=== PATIENT | male | born 1995 | race Caucasian/White ===

== ENCOUNTER 2019-06-02 13:15 | Emergency (ER) | payer OTHER ==
[~2019-06-02] VITALS: Ht 127 cm; Wt 89.4 kg
[2019-06-02 13:37] VITALS: BP 137/76
--- NOTE | 2019-06-02 13:39 | NUR ---
PT WAITING IN LOBBY
--- NOTE | 2019-06-02 14:45 | NUR ---
Patient ambulated to chair D with family.
--- NOTE | 2019-06-02 15:20 | NUR ---
GILMER TRACY EVALUATING PATIENT AT THIS TIME
--- NOTE | 2019-06-02 15:28 | NUR ---
The patient was evaluated, treated and discharged by GILMER Rios. No nursing care was rendered. The patient was discharged by GILMER Rios.
== END 2019-06-02 15:28 | disposition home or self-care (01) ==
LOC: MED 13:15
DX: J30.9 Allergic rhinitis, unspecified (principal)
CPT/HCPCS: 99283